=== PATIENT | male | born 1955 ===

== ENCOUNTER 2019-06-04 17:39 | Emergency (ER) | payer OTHER ==
[~2019-06-04] VITALS: Ht 188 cm; Wt 97.5 kg
[2019-06-04] MEDS ORDERED: TERB250 PO (19:31)
[2019-06-04] MEDS ORDERED: Amoxicillin875 MG PO (19:39)
[2019-06-04] MEDS ORDERED: IBUP600 PO (19:53)
== END 2019-06-04 20:01 | disposition home or self-care (01) ==
LOC: ER 17:39
DX: H66.92 Otitis media, unspecified, left ear (principal); R06.2 Wheezing; Z88.5 Allergy status to narcotic agent; Z79.899 Other long term (current) drug therapy
CPT/HCPCS: 99283

== ENCOUNTER 2019-06-07 21:42 | Inpatient (IN) | payer OTHER ==
[~2019-06-07] VITALS: Ht 188 cm; Wt 95.8 kg
[~2019-06-07 21:42] MED LIST: Amoxicillin875 MG PO; IBUP600 PO; TERB250 PO
[2019-06-07 22:28] LABS: Source, Urine Voided
[2019-06-07 22:32] LABS: Appearance, Urine Clear (Clear); Bilirubin, Urine Neg (Neg); Blood, Urine 1+ (Neg); Color, Urine Amber (P-Yellow); Glucose Qualitative, Urine 4+ (Neg); Ketones, Urine 2+ (Neg); Leukocyte Esterase, Urine Neg (Neg); Nitrite, Urine Neg (Neg); Protein, Urine 3+ (Neg); Urobilinogen, Urine 1+ (Normal)
[2019-06-07 22:38] LABS: Amorphous Light (0-Heavy); Bacteria Mod /hpf; Mucus Light (0-Heavy); Red Blood Cells, Urine 0-2 /hpf (0-2); Squamous Epithelial Cells Not Seen /hpf (Few)
[2019-06-08 00:10] LABS: Calcium, Ionized (POC) 1.11 mmol/L (1.10-1.46); Chloride (POC) 90 mmol/L (98-108); Creatinine (POC) 1.3 mg/dL (0.8-1.3); Glucose (ISTAT POC) 504 mg/dL (70-99); Hemoglobin (POC) 16.7 g/dL (13.5-17.5); Potassium (POC) 3.9 mmol/L (3.5-5.5); Sodium (POC) 123 mmol/L (135-148); Total CO2 (POC) 23 mmol/L (21-32)
[2019-06-08 00:58] LABS: BASOPHILS ABSOLUTE AUTO 0.05 K/mm3 (0.00-0.23); BASOPHILS PERCENT AUTO 1 % (0-2); Hematocrit 42.3 % (37.0-53.0); Hemoglobin 14.9 g/dL (13.5-17.5); LYMPHOCYTES ABSOLUTE AUTO 0.26 K/mm3 (0.84-5.20); LYMPHOCYTES PERCENT AUTO 3 % (21-46); MONOCYTES ABSOLUTE AUTO 0.85 K/mm3 (0.16-1.47); MONOCYTES PERCENT AUTO 9 % (4-13); Mean Corpuscular HGB 31.3 pg (26.0-34.0); Mean Corpuscular HGB Conc 35.2 g/dL (31.5-36.5); Mean Corpuscular Volume 89 fL (80-100); Platelet Count 150 K/mm3 (150-400); RDW Coefficient Variation 11.2 % (11.7-14.2); RDW Standard Deviation 36.4 fL (35.1-46.3); Red Blood Cell Count 4.76 M/mm3 (4.30-5.90); White Blood Cell Count 9.49 K/mm3 (4.00-11.30)
[2019-06-08 01:02] LABS: EOSINOPHILS PERCENT AUTO 0 % (0-6); IMMATURE GRAN ABSOLUTE AUTO 0.07 K/mm3 (0.00-0.10); IMMATURE GRAN PERCENT AUTO 1 % (0-1); Mean Platelet Volume 14.1 fL (9.1-12.4); NEUTROPHILS ABSOLUTE AUTO 8.26 K/mm3 (1.96-9.15); NEUTROPHILS PERCENT AUTO 87 % (41-73)
[2019-06-08 01:11] LABS: Albumin, Blood 2.5 g/dL (3.4-5.0); Albumin/Globulin Ratio 0.5 (0.8-1.8); Bilirubin, Total 1.1 mg/dL (0.1-1.0); Bun/Creatinine Ratio 28.1 (12.0-20.0); Calcium, Blood 8.9 mg/dL (8.5-10.1); Creatinine, Blood 1.28 mg/dL (0.60-1.20); Globulin, Blood 4.8 g/dL (2.2-4.0); Potassium, Blood 4.4 mmol/L (3.5-5.5); Total Protein, Blood 7.3 g/dL (6.4-8.2)
[2019-06-08 03:32] LABS: International Normalized Ratio 1.09; Prothrombin Time Results 11.5 Sec (9.7-11.5)
--- NOTE | 2019-06-08 04:00 | NUR ---
ADMIT NOTE: ADMIT 64 YEAR OLD MALE TO ICU 10 PCU STATUS TO [address] BANKS SERVICE PER GURNEY VIA ER. GAIT STEADY TO BED. MONITOR PLACED SHOWING SINUS RHYTHM HEART RATE 70'S-90'S. CO RIGHT FLANK/RIB PAIN ESPICALLY WHEN MOVING OR COUGHING LUNG SOUNDS CLEAR UPPER LOBES WITH VERY DECREASED SOUNDS IN THE BASES COARSE HARSH COUGH WITH SMALL AMT THICK YELLOW SPUTUM EXPECTORATED. REMINDED THAT A SPUTUM SAMPLE IS NEEDED. COLLECTION CONTAINER GIVEN .ABDOMEN SOFT WITH BOWEL SOUNDS FOUR QUADS. IV TO L AC PATENT FLUSHED. RELEASE OF MEDICAL INFORMATION AND BLOOD CONSENT SIGHNED. RESP PANAL OBTAINED AND SENT TO LAB. REPOSITIONS SELF IN BED CONTINUE TO MONITOR AND REPORT CHANGE IN PATIENT CONDITION AT
[2019-06-08 04:35] LABS: Hematocrit 38.9 % (37.0-53.0); Hemoglobin 13.3 g/dL (13.5-17.5); Mean Corpuscular HGB 31.1 pg (26.0-34.0); Mean Corpuscular HGB Conc 34.2 g/dL (31.5-36.5); Mean Corpuscular Volume 91 fL (80-100); Platelet Count 117 K/mm3 (150-400); RDW Coefficient Variation 11.3 % (11.7-14.2); RDW Standard Deviation 38.1 fL (35.1-46.3); Red Blood Cell Count 4.27 M/mm3 (4.30-5.90); White Blood Cell Count 8.05 K/mm3 (4.00-11.30)
[2019-06-08 04:39] LABS: Mean Platelet Volume 13.3 fL (9.1-12.4)
[2019-06-08 04:51] LABS: Albumin, Blood 2.3 g/dL (3.4-5.0); Albumin/Globulin Ratio 0.5 (0.8-1.8); Bilirubin, Total 0.8 mg/dL (0.1-1.0); Bun/Creatinine Ratio 26.9 (12.0-20.0); Calcium, Blood 8.6 mg/dL (8.5-10.1); Creatinine, Blood 1.34 mg/dL (0.60-1.20); Globulin, Blood 4.3 g/dL (2.2-4.0); Potassium, Blood 3.8 mmol/L (3.5-5.5); Total Protein, Blood 6.6 g/dL (6.4-8.2)
[2019-06-08 06:24] LABS: Adenovirus Not Detected (NOT DETECT); Bordetella pertussis Not Detected (NOT DETECT); Chlamydophila pneumoniae Not Detected (NOT DETECT); Coronavirus 229E Not Detected (NOT DETECT); Coronavirus HKU1 Not Detected (NOT DETECT); Coronavirus NL63 Not Detected (NOT DETECT); Coronavirus OC43 Not Detected (NOT DETECT); Human Metapneumovirus Not Detected (NOT DETECT); Human Rhinovirus/Enterovirus Detected (NOT DETECT); Influenza A Not Detected (NOT DETECT); Influenza A/2009-H1 Not Detected (NOT DETECT); Influenza A/H1 Not Detected (NOT DETECT); Influenza A/H3 Not Detected (NOT DETECT); Influenza B Not Detected (NOT DETECT); Mycoplasma pneumoniae Not Detected (NOT DETECT); Parainfluenza Virus 1 Not Detected (NOT DETECT); Parainfluenza Virus 2 Not Detected (NOT DETECT); Parainfluenza Virus 3 Not Detected (NOT DETECT); Parainfluenza Virus 4 Not Detected (NOT DETECT); Respiratory Syncytial Virus Not Detected (NOT DETECT)
--- NOTE | 2019-06-08 06:42 | NUR ---
SHIFT SUMMARY RESTS QUIETLY WHEN UNDISTURBED. NO ACUTE CHANGE IN CONDITION SINCE ADMIT
--- NOTE | 2019-06-08 07:30 | NUR ---
ASSUMED CARE: PT RESTING IN BED. MOANING BECAUSE HIS RIBS HURT. RT AT BEDSIDE. 2L O2 VIA NC. ASKED IF HE CAN HAVE WATER. CALL TO DR THAKKAR FOR DIET. NO ACUTE NEEDS AT THIS TIME.
--- NOTE | 2019-06-08 10:32 | NUR ---
REPORT GIVEN TO TRACE DAS. PIPPA AWARE OF PT'S INCREASED BLOOD SUGARS AND THAT BREAKFAST WAS HELD. FAMILY AT BEDSIDE AND AWARE OF TRANSFER TO [facility]. PT TRANSFERRED VIA WHEEL CHAIR BY TRACE
--- NOTE | 2019-06-08 11:35 | NUR ---
HE ARRIVED TO ROOM 359 FROM ICU BY W/C AT 1020. HE SAT ON THE SIDE OF THE BED FOR AWHILE, THEN LAYED ON HIS L SIDE IN PAIN. I SPOKE WITH ABOUT PAIN COVERAGE. HE ORDERED TORADOL, WHICH IS WHAT PATIENT WAS HOPING FOR. HE HAS NOW BEEN MEDICATED. CBG 304. SS INSULIN GIVEN. HIS GIRLFRIEND STEPPED OUT. HIS MOTHER AND DAUGHTER ARE VISITING NOW.
--- NOTE | 2019-06-08 12:59 | NUR ---
HE IS HAVING AN EKG DONE AT THIS TIME. HE WAS UP IN THE CHAIR FOR LUNCH AND SO THAT WE COULD EXCHANGE HIS BED FOR ANOTHER ONE. THE FIRST BED WENT TO MAINTAINENCE. HE IS EATING SLOWLY. HE SAID HE HAS HARDLY EATEN ANYTHING FOR 4 DAYS.
--- NOTE | 2019-06-08 15:08 | NUR ---
HE SAYS THE TORADOL DIDN'T HELP VERY MUCH. A HEATING PAD HAS BEEN STARTED. THE PAIN IS IN HIS BACK AND BEHIND HIS RIBS BOTH SIDES. HIS LEFT EAR DRAINED SOME MUCOUSY BROWN RED DRAINAGE EARLIER TODAY WHEN HE LAYED ON HIS L SIDE IN BED. HE ATE SOUP AT LUNCH BUT NOTHING ELSE. HIS GIRLFRIEND LEFT FOR A FEW HRS.
--- NOTE | 2019-06-08 18:47 | NUR ---
THE IV TORADOL WAS MORE EFFECTIVE THAN THE PO DOSE. HE ALSO IS MORE COMFORTABLE IN THE CHAIR THAN HE WAS IN THE BED. HE DID NOT LIKE THE KPAD MUCH EITHER. HIS GIRLFRIEND IS BACK. HE HAS A NEW SPUTUM CUP BECAUSE THE LAB CALLED AND SAID THEY REJECTED THE EARLIER SPECIMAN. O2 HUMIDIFIED BECAUSE HE C/O BLOODY NOSE. HIS O2 HAS BEEN OFF MOST OF THE TIME. HE PUTS IT UP ON HIS FOREHEAD OR UNDER HIS CHIN.
[2019-06-09 04:35] LABS: Hemoglobin 12.9 g/dL (13.5-17.5); Mean Corpuscular HGB 31.6 pg (26.0-34.0); Mean Corpuscular HGB Conc 34.9 g/dL (31.5-36.5); Mean Corpuscular Volume 91 fL (80-100); Platelet Count 131 K/mm3 (150-400); RDW Coefficient Variation 11.6 % (11.7-14.2); RDW Standard Deviation 38.8 fL (35.1-46.3); Red Blood Cell Count 4.08 M/mm3 (4.30-5.90); White Blood Cell Count 7.47 K/mm3 (4.00-11.30)
[2019-06-09 04:43] LABS: Mean Platelet Volume 13.1 fL (9.1-12.4)
[2019-06-09 04:51] LABS: Anion Gap 9 mmol/L (6-16); Blood Urea Nitrogen 43 mg/dL (8-24); Bun/Creatinine Ratio 36.1 (12.0-20.0); CO2, Blood 25 mmol/L (21-32); Calcium, Blood 8.6 mg/dL (8.5-10.1); Chloride, Blood 96 mmol/L (98-108); Creatinine, Blood 1.19 mg/dL (0.60-1.20); Glomerular Filtration Rate >60 (60-); Glucose, Blood 323 mg/dL (70-99); Potassium, Blood 3.5 mmol/L (3.5-5.5); Sodium, Blood 130 mmol/L (136-145)
[2019-06-09 05:08] LABS: BAND PERCENT MAN 25 % (0-8); BASOPHILS PERCENT MAN 0 % (0-2); EOSINOPHILS PERCENT MAN 0 % (0-6); LYMPHOCYTES ABSOLUTE MAN 0.29 K/mm3 (0.84-5.20); LYMPHOCYTES PERCENT MAN 4 % (21-46); MONOCYTES ABSOLUTE MAN 0.44 K/mm3 (0.16-1.47); MONOCYTES PERCENT MAN 6 % (4-13); MYELOCYTE ABSOLUTE MAN 0.07 K/mm3 (0.00-0.00); MYELOCYTE PERCENT MAN 1 % (0-0); NEUTROPHILS ABSOLUTE MAN 6.64 K/mm3 (1.96-9.15); SEG NEUTROPHILS PERCENT MAN 64 % (41-73); TOTAL CELLS COUNTED 100
--- NOTE | 2019-06-09 06:34 | NUR ---
SHIFT SUMMARY PT C/O PAIN IN R SIDE SAID IT WAS STARTING TO COME TO HIS FRONT, SHARP PAIN 10 OUT OF 10 MOANING VERY LOUDLY SO LOUD IT WAS HEARD OUT INTO HALLWAYS. MEDICATED PER LUCILA Marmolejo TYLENOL, HE REFUSED ANY OPIATES SAID IT MADE HIM SHAKE TOO MUCH AND GET TOO COLD AND WOULD "KILL HIM". NOTIFIED LAUREN HERMOSILLO OF CONTINUED PAIN SHE ORDERED IV TORADOL Q6 AND FLEXERIL 5MG. HE WAS ABLE TO GET TO SLEEP AFTER THE FLEXERIL, SLEPT IN CHAIR AND LATER WENT INTO BED. HARSH PRODUCTIVE COUGH WITH THICK MUCUS HE COUGHS UP. L EAR STILL DRAINING SEROUS AND SOME BLOOD. SO AT BEDSIDE T/O NIGHT. O2 SAT 94% ON RA. CALL LIGHT IN REACH.
--- NOTE | 2019-06-09 11:52 | NUR ---
HIS GIRLFRIEND HAS GONE HOME FOR AWHILE TO SHOWER, ETC. HE HAS SHOWERED AND STILL FEELS TERRIBLE BUT NOT TERRIBLE YESTERDAY. THE FLEXERIL IS HELPFUL TO HIM, IS THE IV TORADOL. HE HAS HAD 1 DOSE OF EACH SO FAR TODAY. HIS EAR DROPS AND IV VANCO HAVE BEEN INITIATED. O2 OFF. HE STILL COUGHS OUT YELLOW BROWN SPUTUM AND HAS A LITTLE OF BLOODY MUCUS FROM HIS NOSE. HE LIKES HIS DOOR CLOSED AND IS TRYING TO REST. HE ONLY GETS HIS I.S. UP TO 500 AND NEEDS TO BE TOLD TO SLOW DOWN. CB THIS AM LESS THAN 300.
--- NOTE | 2019-06-09 13:52 | NUR ---
CABBAGE SALTER SAW HIM AND GAVE HIM PAPERWORK TO ESTABLISH WITH A PCP AT [facility]. HE ATE SOME LUNCH. HE SAYS HE'S JUST SO WEAK BUT HAS LESS PAIN THAN YESTERDAY.
--- NOTE | 2019-06-09 16:35 | NUR ---
HE HAS A HANDFUL OF FAMILY WITH HIM NOW. 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 EDUCATION GIVEN. CBG WAS 318 AT LUNCHTIME. HE SAYS HE FEELS WEAK, BUT HE DID SHOWER TODAY AND EAT SOME FOOD. HE IS ON RA. SEE PREVIOUS DAYSHIFT NOTES.
--- NOTE | 2019-06-10 04:12 | NUR ---
SHIFT SUMMARY AOX4. LS COARSE, SOB W/ACTIVITY AND COUGHING SPELLS. COUGH IS PRODUCTIVE. INCENTIVE SPIROMETER ENCOURAGED. NO C/O NAUSEA. PAIN 5/10 IN R FLANK/BACK, INCREASED WITH MOVEMENT/COUGHING. FLEXERIL GIVEN @ 2004. TORADOL GIVEN @ 44. PLANNING ON GIVING MORE PAIN MEDICATION BEFORE END OF SHIFT. NO SKIN PROBLEMS. PT UP AD SAMANTA. DROPLET PRECAUTION FOR MRSA IN SPUTUM. 20G IN L AC SL. BLOOD SUGARS HIGH (288, 318, 397), PT WASN'T TAKING DIABETIC MEDS D/T NAUSEA AND VOMITING. L EAR DRAINS OCCASIONALLY, EARDRUM PERFORATED, PT TAKING DROPS DAILY. VSS ON RA. UNSURE OF DC PLAN AT THIS TIME.
[2019-06-10 05:26] LABS: Hematocrit 38.5 % (37.0-53.0); Mean Corpuscular HGB 30.6 pg (26.0-34.0); Mean Corpuscular HGB Conc 33.8 g/dL (31.5-36.5); Mean Corpuscular Volume 91 fL (80-100); Mean Platelet Volume 13.3 fL (9.1-12.4); Platelet Count 134 K/mm3 (150-400); RDW Coefficient Variation 11.7 % (11.7-14.2); RDW Standard Deviation 38.9 fL (35.1-46.3); Red Blood Cell Count 4.25 M/mm3 (4.30-5.90); White Blood Cell Count 9.34 K/mm3 (4.00-11.30)
[2019-06-10 05:45] LABS: BAND PERCENT MAN 33 % (0-8); BASOPHILS PERCENT MAN 0 % (0-2); EOSINOPHILS ABSOLUTE MAN 0.09 K/mm3 (0.00-0.68); EOSINOPHILS PERCENT MAN 1 % (0-6); LYMPHOCYTES ABSOLUTE MAN 0.46 K/mm3 (0.84-5.20); LYMPHOCYTES PERCENT MAN 5 % (21-46); MONOCYTES ABSOLUTE MAN 0.37 K/mm3 (0.16-1.47); MONOCYTES PERCENT MAN 4 % (4-13); MYELOCYTE ABSOLUTE MAN 0.18 K/mm3 (0.00-0.00); MYELOCYTE PERCENT MAN 2 % (0-0); NEUTROPHILS ABSOLUTE MAN 8.21 K/mm3 (1.96-9.15); SEG NEUTROPHILS PERCENT MAN 55 % (41-73); TOTAL CELLS COUNTED 100
[2019-06-10 05:48] LABS: Anion Gap 8 mmol/L (6-16); Blood Urea Nitrogen 30 mg/dL (8-24); Bun/Creatinine Ratio 40.4 (12.0-20.0); CO2, Blood 24 mmol/L (21-32); Calcium, Blood 8.5 mg/dL (8.5-10.1); Chloride, Blood 101 mmol/L (98-108); Creatinine, Blood 0.74 mg/dL (0.60-1.20); Glomerular Filtration Rate >60 (60-); Glucose, Blood 295 mg/dL (70-99); Potassium, Blood 3.1 mmol/L (3.5-5.5); Sodium, Blood 133 mmol/L (136-145)
--- NOTE | 2019-06-10 08:10 | NUR ---
PT A/O, STATES WORKS AT [employer], OVERLY ANXOIUS AND VERY DRAMATIC. PRESENTLY COUGHING MULTIPLE HARD WHINING LOUD COUGHS ATTEMPTING TO BRING UP SPUTUM. DOES BRING SOME LIGHT GARCIA SPUTUM AFTER MANY ATTEMPTS. H/R IS IRREG, APPEARS TO SKIP A BEAT OCCATIONALLY UPON AUSCULTATION. NO TELE, NO PACER. DENIES HEART CONDITIONS. WILL NOTIFY DR THAKKAR WHEN SEE. LUNGS PRESENT CLEAR T/O. ON R/A. DENIES SOB WITH WALKING OR TALKING. SMALL AMTS OF LIGHT GARCIA SPUTUM AFTER MUCH WORK TO BRING UP, NOTED ABOVE. STATES PAIN IS 8/10 ON RT RIBS, DENIES PAIN WITH BREATHING. STATES PAIN IS THROBBING IN RIBS. MED PER EMAR. RESP EASY, UNLABORED. ON R.A. BT X4 LAST BM FIRST STATES HAS NEVER HAD ONE. UPON FURTHER DISCUSSION AGREES AT LEAST SINCE SAT PERHAPS LATER. DENIES ABD PAIN. SOFT, NONTENDER. MED PER EMAR. VOIDS PER BATHROOM, INDEPENDANT IN ROOM. BED IN LOW POSITION, CALL LITE IN REACH, CALLS APPROP.
[2019-06-10 10:33] LABS: Vancomycin, Trough 8.6 ug/mL (5.0-10.0)
--- NOTE | 2019-06-10 12:50 | NUR ---
NOTIFIED DR THAKKAR OF [facility] H/[facility]. NO NEW ORDERS
--- NOTE | 2019-06-10 17:29 | NUR ---
PT PLEASANT COOP A/O. COUNTANANCE IMPROVED SOME TODAY. JUST ASKED PAIN LEVEL WHICH HE STATES IS QUITE LOW. NO MEDS NEEDED AT THIS TIME. LADYFRIEND IN ROOM WITH HIM AT THIS TIME. NO OTHER CONCERNS AT THIS TIME. BED IN LOW POSITION, CALL LITE IN REACH, CALLS APPROP
--- NOTE | 2019-06-11 05:21 | NUR ---
SHIFT SUMMARY PT A/O INDEPENDENT. C/O PAIN IN L EAR AND R SIDE MEDICATED PER EMAR C IV TORADOL X1. HE REFUSED TYLENOL OR MUSCLE RELAXER. HE WAS ABLE TO SLEEP T/O NOC. STILL HARSH OCCASIONAL PRODUCTIVE COUGH WHICH HE SAYS IS BEGINNING TO BRING UP LESS AND LESS MUCUS. RA AT 93-94%.
[2019-06-11 05:27] LABS: Hematocrit 38.5 % (37.0-53.0); Mean Corpuscular HGB 30.8 pg (26.0-34.0); Mean Corpuscular HGB Conc 33.8 g/dL (31.5-36.5); Mean Corpuscular Volume 91 fL (80-100); Mean Platelet Volume 12.3 fL (9.1-12.4); Platelet Count 169 K/mm3 (150-400); RDW Coefficient Variation 11.9 % (11.7-14.2); RDW Standard Deviation 39.8 fL (35.1-46.3); Red Blood Cell Count 4.22 M/mm3 (4.30-5.90); White Blood Cell Count 9.68 K/mm3 (4.00-11.30)
[2019-06-11 05:47] LABS: Anion Gap 9 mmol/L (6-16); Blood Urea Nitrogen 22 mg/dL (8-24); Bun/Creatinine Ratio 25.9 (12.0-20.0); CO2, Blood 24 mmol/L (21-32); Calcium, Blood 8.6 mg/dL (8.5-10.1); Chloride, Blood 102 mmol/L (98-108); Creatinine, Blood 0.85 mg/dL (0.60-1.20); Glomerular Filtration Rate >60 (60-); Glucose, Blood 249 mg/dL (70-99); Potassium, Blood 3.3 mmol/L (3.5-5.5); Sodium, Blood 135 mmol/L (136-145)
[2019-06-11 05:51] LABS: BAND PERCENT MAN 4 % (0-8); BASOPHILS PERCENT MAN 0 % (0-2); EOSINOPHILS PERCENT MAN 0 % (0-6); LYMPHOCYTES ABSOLUTE MAN 0.77 K/mm3 (0.84-5.20); LYMPHOCYTES PERCENT MAN 8 % (21-46); MONOCYTES ABSOLUTE MAN 0.77 K/mm3 (0.16-1.47); MONOCYTES PERCENT MAN 8 % (4-13); NEUTROPHILS ABSOLUTE MAN 8.13 K/mm3 (1.96-9.15); SEG NEUTROPHILS PERCENT MAN 80 % (41-73); TOTAL CELLS COUNTED 100
[2019-06-11 11:53] LABS: Vancomycin, Trough 10.4 ug/mL (5.0-10.0)
--- NOTE | 2019-06-11 17:51 | NUR ---
SHIFT SUMMARY PATIENT IS PLEASANT, ALERT AND ORIENTED INDEPENDENT IN THE ROOM. HE GOT A POWERGLIDE TODAY, IT DOES DRAW BUT IS POSITIONAL. NO ACUTE CONCERNS AT THS TIME. CONTINUE IV ANTIBIOTIC THERAPY UNTIL FURTHER NOTICE.
--- NOTE | 2019-06-12 05:48 | NUR ---
SHIFT SUMMARY NO ACUTE EVENTS OVERNIGHT. RESP E/U ON RA. PT REPORTS PAIN IS TOLERABLE AT THIS TIME AND DENIES NEED FOR PAIN MEDS. PT WITH OCCASIONAL HACKING COUGH, REPORTS YELLOW/GREEN SPUTUM. USING INCENTIVE SPIROMETER FREQUENTLY, S/O AT BEDSIDE ENCOURAGING USE. IV ABX PER EMAR ORDERS. VSS. WILL CONT TO MONITOR AND PROVIDE CARE UNTIL PRESUMED BY ONCOMING RN.
[2019-06-12 12:48] LABS: Vancomycin, Trough 13.8 ug/mL (5.0-10.0)
--- NOTE | 2019-06-12 18:31 | NUR ---
SHIFT SUMMARY PATIENT IS PLEASANT, ALERT AND ORIENTED. I CHANGED THE CAP ON HIS POWERGLIDE TODAY BECAUSE WE DYLON BLOOD THROUGH IT. PATIENT HAS BEEN CONNECTED FOR IV ABX. OTHER THAN THAT HE IS PLEASANT. HE HAS EATEN AND DONE A LOT OF RESTING TODAY.
--- NOTE | 2019-06-13 04:46 | NUR ---
SHIFT SUMMARY AOX4. DENIES SOB, NAUSEA, AND PAIN. INDEPENDENT. NO SKIN PROBLEMS. DROPLET PRECAUTIONS FOR MRSA IN SPUTUM. VSS ON RA. POWERGLIDE IN [facility], WASN'T DRAWING BLOOD THIS AM. BLOOD GLUCOSE BEFORE MEALS. PT WILL WANT SHOWER LATER THIS AM. PLAN IS TO SWITCH TO ORAL ANTIBIOTICS THEN DC TODAY.
[2019-06-13 13:16] LABS: Creatinine, Blood 0.69 mg/dL (0.60-1.20); Vancomycin, Trough 12.1 ug/mL (5.0-10.0)
--- NOTE | 2019-06-13 19:12 | NUR ---
SHIFT SUMMARY MIGUEL STATES HIS BREATHING AND HIS EAR INFECTION FEEL A LOT BETTER TODAY. POOR APPETITE. FAMILY VISITED. INDEP IN ROOM. CBGS REQUIRING INSULIN. SLIGHT L EAR DRAINAGE. R POWERGLIDE NOT DRAWING. TOOK MEDS PRESCRIBED, WCTM
--- NOTE | 2019-06-14 03:17 | NUR ---
SHIFT SUMMARY AOX4. LS CLEAR, SOB IMPROVING. NO C/O NAUSEA, VERY LITTLE APPETITE. NO C/O PAIN. INDEPENDENT. NO SKIN PROBLEMS. POWERGLIDE IN [place] - SL. L EAR STILL DRAINS OCCASIONALLY. PLAN IS TO DC TODAY W/ORAL DM MEDS AND ORAL ANTIBIOTICS. VSS ON RA.
[2019-06-14] MEDS ORDERED: CYCL10 PO (12:00)
[2019-06-14] MEDS ORDERED: GUAI600T33 PO (12:01)
[2019-06-14] MEDS ORDERED: Ocuflox5 ML LEFTEAR (12:02)
[2019-06-14] MEDS ORDERED: DOXY100 PO (12:03)
[2019-06-14] MEDS ORDERED: GLIP2.5ER PO (12:04)
--- NOTE | 2019-06-14 12:38 | NUR ---
PT DISCHARGED TO HOME. PT ALERT AND ORIENTED THROUGHOUT THIS SHIFT. PT TRANSPORTED HOME BY S/O. PT INDEPENDENT IN ROOM PRIOR TO DISCHARGE. PT AND S/O PROVIDED DISCHARGE EDUCATION, STATING NO QUESTIONS AT THIS TIME. PT BELONGINGS WITH PT UPON DISCHARGE. PT TO WHEELCHAIR INDEPENDENTLY FOR DISCHARGE. POWERGLIDE REMOVED PRIOR TO DISCHARGE.
== END 2019-06-14 12:34 | disposition home or self-care (01) | DRG 177 ==
LOC: ER 21:42 → ICUW 06-08 03:43 → MEDS 06-08 10:20 → ENPENDDIS 06-14 11:13 → MEDS 06-14 12:34
PROVIDERS: Emergency Medicine; Internal Medicine; Pharmacist; ADMIT Internal Medicine
DX: J15.212 Pneumonia due to Methicillin resistant Staphylococcus aureus (principal); J96.01 Acute respiratory failure with hypoxia; E87.1 Hypo-osmolality and hyponatremia; K59.00 Constipation, unspecified; E86.0 Dehydration; H66.90 Otitis media, unspecified, unspecified ear; E87.6 Hypokalemia; Z79.84 Long term (current) use of oral hypoglycemic drugs; E11.65 Type 2 diabetes mellitus with hyperglycemia
CPT/HCPCS: 0099U; 36415; 71046; 71260; 74176; 80047; 80048; 80053; 80202; 81001; 82565; 82947; 83605; 83690; 84145; 85014; 85025; 85027; 85610; 87070; 87077; 87086; 87147; 87186; 87205; 93005; 93010; 94640; 94760; 96365; 96366; 96372; 99285-25; J0696; J1650; J1885; J1956; J2543; J3370; J7030; J7050; Q9967

== ENCOUNTER 2019-12-21 08:04 | Day surgery (SDC) | payer OTHER ==
[~2019-12-21] VITALS: Ht 185.4 cm; Wt 104.0 kg
[~2019-12-21 08:04] MED LIST changes: +CYCL10 PO; +DOXY100 PO; +GLIP2.5ER PO; +GUAI600T33 PO; +Ocuflox5 ML LEFTEAR
[2019-12-21] MEDS ORDERED: PIOG30 (08:51)
[2019-12-21] MEDS ORDERED: ATOR20 (08:52)
== END 2019-12-21 09:58 | disposition home or self-care (01) ==
LOC: ORSCSDS 08:04
PROVIDERS: Internal Medicine Gastroenterology
PROC: 0DBM8ZX Excision of Descending Colon, Via Natural or Artificial Opening Endoscopic, Diagnostic (ICD-10-PCS; principal; 2019-12-21 09:00)
PROC: 0DBH8ZX Excision of Cecum, Via Natural or Artificial Opening Endoscopic, Diagnostic (ICD-10-PCS; principal; 2019-12-21 09:00)
PROC: 0DBP8ZX Excision of Rectum, Via Natural or Artificial Opening Endoscopic, Diagnostic (ICD-10-PCS; principal; 2019-12-21 09:00)
PROC: 0DBK8ZX Excision of Ascending Colon, Via Natural or Artificial Opening Endoscopic, Diagnostic (ICD-10-PCS; principal; 2019-12-21 09:00)
PROC: 0DBL8ZX Excision of Transverse Colon, Via Natural or Artificial Opening Endoscopic, Diagnostic (ICD-10-PCS; principal; 2019-12-21 09:00)
DX: K62.5 Hemorrhage of anus and rectum (principal); Z86.010 Personal history of colon polyps; K59.00 Constipation, unspecified; Z80.0 Family history of malignant neoplasm of digestive organs; D12.0 Benign neoplasm of cecum; D12.2 Benign neoplasm of ascending colon; D12.3 Benign neoplasm of transverse colon; K63.5 Polyp of colon; K62.1 Rectal polyp; K63.89 Other specified diseases of intestine; E11.9 Type 2 diabetes mellitus without complications; I10 Essential (primary) hypertension; Z79.899 Other long term (current) drug therapy; Z79.82 Long term (current) use of aspirin
CPT/HCPCS: 82947; 88305; J0330; J0461; J2405; J2704; J7120

== ENCOUNTER → 2023-04-21 | Outpatient (CLI) | payer MEDICARE ==
[~2023-04-21] MED LIST changes: +ATOR20; +PIOG30
[2023-04-21 14:33] LABS: BASOPHILS ABSOLUTE AUTO 0.06 K/mm3 (0.00-0.23); BASOPHILS PERCENT AUTO 1 % (0-2); EOSINOPHILS ABSOLUTE AUTO 0.27 K/mm3 (0.00-0.68); EOSINOPHILS PERCENT AUTO 5 % (0-6); Hematocrit 45.9 % (37.0-53.0); Hemoglobin 15.5 g/dL (13.5-17.5); IMMATURE GRAN ABSOLUTE AUTO 0.03 K/mm3 (0.00-0.10); IMMATURE GRAN PERCENT AUTO 1 % (0-1); LYMPHOCYTES ABSOLUTE AUTO 1.31 K/mm3 (0.84-5.20); LYMPHOCYTES PERCENT AUTO 23 % (21-46); MONOCYTES ABSOLUTE AUTO 0.41 K/mm3 (0.16-1.47); MONOCYTES PERCENT AUTO 7 % (4-13); Mean Corpuscular HGB 30.5 pg (26.0-34.0); Mean Corpuscular HGB Conc 33.8 g/dL (31.5-36.5); Mean Corpuscular Volume 90 fL (80-100); NEUTROPHILS ABSOLUTE AUTO 3.62 K/mm3 (1.96-9.15); NEUTROPHILS PERCENT AUTO 64 % (41-73); Platelet Count 140 K/mm3 (150-400); RDW Coefficient Variation 12.3 % (11.7-14.2); RDW Standard Deviation 40.5 fL (35.1-46.3); Red Blood Cell Count 5.08 M/mm3 (4.30-5.90)
[2023-04-21 14:39] LABS: Mean Platelet Volume 13.3 fL (9.1-12.4)
[2023-04-21 17:50] LABS: Alanine Aminotransfer (ALT/SGP 41 U/L (12-78); Albumin, Blood 3.8 g/dL (3.4-5.0); Albumin/Globulin Ratio 1.1 (0.8-1.8); Alk Phos 87 U/L (50-136); Anion Gap 5 mmol/L (6-16); Aspartate Aminotrans (AST/SGOT 19 U/L (12-37); Bilirubin, Total 0.6 mg/dL (0.1-1.0); Blood Urea Nitrogen 14 mg/dL (8-24); CHOL/HDL RATIO 5.7; CO2, Blood 25 mmol/L (21-32); Calcium, Blood 8.9 mg/dL (8.5-10.1); Chloride, Blood 107 mmol/L (98-108); Cholesterol 195 mg/dL (50-200); Globulin, Blood 3.5 g/dL (2.2-4.0); Glucose, Blood 181 mg/dL (70-99); HDL Cholesterol 34 mg/dL (>39); LDL/HDL RATIO 3.6; Low Density Lipoprotein Chol 122 mg/dL (0-110); Potassium, Blood 4.1 mmol/L (3.5-5.5); Sodium, Blood 137 mmol/L (136-145); Total Protein, Blood 7.3 g/dL (6.4-8.2); Triglycerides 196 mg/dL (30-160); Very Low Density Lipoprot Chol 39 mg/dL (6-32)
[2023-04-21 17:56] LABS: Bun/Creatinine Ratio 14.9 (12.0-20.0); Creatinine, Blood 0.94 mg/dL (0.60-1.20); Glomerular Filtration Rate 88 (60-); Prostate Specific Antigen 0.587 ng/mL (0.000-4.000)
[2023-04-25 09:10] LABS: FREE TESTOSTERONE(DIRECT) 8.6 pg/mL (6.6-18.1); TESTOSTERONE, SERUM 201 ng/dL (264-916)
== END ==
LOC: LAB SHORT 10:30 → LAB 10:30
PROVIDERS: Nurse Practitioner Family
DX: Z12.5 Encounter for screening for malignant neoplasm of prostate (principal); Z13.31 Encounter for screening for depression; E11.65 Type 2 diabetes mellitus with hyperglycemia; E55.9 Vitamin D deficiency, unspecified; E78.5 Hyperlipidemia, unspecified; R53.83 Other fatigue
CPT/HCPCS: 80053; 80061; 82306; 84402; 84403; 84443; 85025; G0103

== ENCOUNTER → 2024-04-04 | Outpatient (CLI) | payer MEDICARE ==
[~2024-04-04] MED LIST changes: +GLIP5
[2024-04-04 11:56] LABS: BASOPHILS ABSOLUTE AUTO 0.06 K/mm3 (0.00-0.23); BASOPHILS PERCENT AUTO 1 % (0-2); EOSINOPHILS PERCENT AUTO 4 % (0-6); Hematocrit 44.3 % (37.0-53.0); Hemoglobin 15.1 g/dL (13.5-17.5); IMMATURE GRAN ABSOLUTE AUTO 0.02 K/mm3 (0.00-0.10); IMMATURE GRAN PERCENT AUTO 0 % (0-1); LYMPHOCYTES ABSOLUTE AUTO 1.15 K/mm3 (0.84-5.20); LYMPHOCYTES PERCENT AUTO 23 % (21-46); MONOCYTES ABSOLUTE AUTO 0.38 K/mm3 (0.16-1.47); MONOCYTES PERCENT AUTO 8 % (4-13); Mean Corpuscular HGB 31.3 pg (26.0-34.0); Mean Corpuscular HGB Conc 34.1 g/dL (31.5-36.5); Mean Corpuscular Volume 92 fL (80-100); NEUTROPHILS ABSOLUTE AUTO 3.29 K/mm3 (1.96-9.15); NEUTROPHILS PERCENT AUTO 65 % (41-73); Platelet Count 122 K/mm3 (150-400); RDW Coefficient Variation 11.9 % (11.7-14.2); RDW Standard Deviation 40.1 fL (35.1-46.3); Red Blood Cell Count 4.82 M/mm3 (4.30-5.90)
== END ==
LOC: LAB 10:36 → LAB SHORT 10:36
PROVIDERS: Internal Medicine Hematology & Oncology
DX: D69.6 Thrombocytopenia, unspecified (principal)
CPT/HCPCS: 85025

== ENCOUNTER → 2024-10-04 | Outpatient (CLI) | payer SELFPAY ==
[2024-10-04 13:16] LABS: BASOPHILS ABSOLUTE AUTO 0.06 K/mm3 (0.00-0.23); BASOPHILS PERCENT AUTO 1 % (0-2); EOSINOPHILS ABSOLUTE AUTO 0.22 K/mm3 (0.00-0.68); EOSINOPHILS PERCENT AUTO 4 % (0-6); Hematocrit 42.8 % (37.0-53.0); Hemoglobin 14.9 g/dL (13.5-17.5); IMMATURE GRAN ABSOLUTE AUTO 0.04 K/mm3 (0.00-0.10); IMMATURE GRAN PERCENT AUTO 1 % (0-1); LYMPHOCYTES ABSOLUTE AUTO 0.96 K/mm3 (0.84-5.20); LYMPHOCYTES PERCENT AUTO 18 % (21-46); MONOCYTES PERCENT AUTO 8 % (4-13); Mean Corpuscular HGB 30.8 pg (26.0-34.0); Mean Corpuscular HGB Conc 34.8 g/dL (31.5-36.5); Mean Corpuscular Volume 89 fL (80-100); NEUTROPHILS ABSOLUTE AUTO 3.66 K/mm3 (1.96-9.15); NEUTROPHILS PERCENT AUTO 69 % (41-73); Platelet Count 146 K/mm3 (150-400); RDW Coefficient Variation 11.6 % (11.7-14.2); RDW Standard Deviation 36.6 fL (35.1-46.3); Red Blood Cell Count 4.83 M/mm3 (4.30-5.90); White Blood Cell Count 5.34 K/mm3 (4.00-11.30)
== END ==
LOC: LAB 12:32 → LAB SHORT 12:32
PROVIDERS: Internal Medicine Hematology & Oncology
DX: D69.6 Thrombocytopenia, unspecified (principal)
CPT/HCPCS: 85025

== ENCOUNTER 2025-01-30 11:50 | Emergency (ER) | payer OTHER ==
[~2025-01-30] VITALS: Ht 185.4 cm; Wt 90.7 kg
[2025-01-30 12:04] VITALS: BP 148/80
[2025-01-30] MEDS ORDERED: CIPR500 PO (13:01)
== END 2025-01-30 13:01 | disposition home or self-care (01) ==
LOC: ER 11:50
DX: L03.115 Cellulitis of right lower limb (principal); S91.331A Puncture wound without foreign body, right foot, initial encounter; E11.9 Type 2 diabetes mellitus without complications; W45.0XXA Nail entering through skin, initial encounter; Z88.5 Allergy status to narcotic agent; Z79.84 Long term (current) use of oral hypoglycemic drugs
CPT/HCPCS: 73620; 99283-25

== ENCOUNTER → 2025-02-01 | Outpatient (CLI) | payer OTHER ==
[~2025-02-01] MED LIST changes: +CIPR500 PO
[2025-02-01 15:15] LABS: BASOPHILS ABSOLUTE AUTO 0.04 K/mm3 (0.00-0.23); BASOPHILS PERCENT AUTO 0 % (0-2); EOSINOPHILS ABSOLUTE AUTO 0.05 K/mm3 (0.00-0.68); EOSINOPHILS PERCENT AUTO 1 % (0-6); Hematocrit 42.6 % (37.0-53.0); Hemoglobin 14.8 g/dL (13.5-17.5); IMMATURE GRAN ABSOLUTE AUTO 0.07 K/mm3 (0.00-0.10); IMMATURE GRAN PERCENT AUTO 1 % (0-1); LYMPHOCYTES ABSOLUTE AUTO 0.79 K/mm3 (0.84-5.20); LYMPHOCYTES PERCENT AUTO 8 % (21-46); MONOCYTES ABSOLUTE AUTO 0.60 K/mm3 (0.16-1.47); MONOCYTES PERCENT AUTO 6 % (4-13); Mean Corpuscular HGB Conc 34.7 g/dL (31.5-36.5); Mean Corpuscular Volume 88 fL (80-100); NEUTROPHILS ABSOLUTE AUTO 8.55 K/mm3 (1.96-9.15); NEUTROPHILS PERCENT AUTO 85 % (41-73); NRBC ABSOLUTE 0.00 K/mm3 (0.00-0.02); NRBC Auto 0.0 /100 WBC (0.0-0.2); Platelet Count 154 K/mm3 (150-400); RDW Coefficient Variation 11.9 % (11.7-14.2); RDW Standard Deviation 38.0 fL (35.1-46.3)
[2025-02-01 15:24] LABS: Alanine Aminotransfer (ALT/SGP 20.0 U/L (12-78); Albumin, Blood 3.3 g/dL (3.4-5.0); Albumin/Globulin Ratio 0.9 (0.8-1.8); Anion Gap 10.0 mmol/L (3-11); Aspartate Aminotrans (AST/SGOT 10.0 U/L (12-37); Bilirubin, Total 0.8 mg/dL (0.1-1.0); Blood Urea Nitrogen 16.0 mg/dL (8-24); CO2, Blood 29.0 mmol/L (21-32); Calcium, Blood 8.9 mg/dL (8.5-10.1); Chloride, Blood 101.0 mmol/L (98-108); Creatinine, Blood 1.18 mg/dL (0.60-1.20); Globulin, Blood 3.8 g/dL (2.2-4.0); Glucose, Blood 364.0 mg/dL (70-99); Potassium, Blood 4.2 mmol/L (3.5-5.5); Sodium, Blood 136.0 mmol/L (136-145); Total Protein, Blood 7.1 g/dL (6.4-8.2)
== END ==
LOC: LAB 15:10 → LAB SHORT 15:10
PROVIDERS: Chiropractor
DX: S91.331A Puncture wound without foreign body, right foot, initial encounter (principal); R73.9 Hyperglycemia, unspecified
CPT/HCPCS: 80053; 83036; 85025

== ENCOUNTER → 2025-02-02 | Outpatient (CLI) | payer OTHER | LOC: LAB 15:10 → LAB SHORT 15:10 | DX: S91.331A Puncture wound without foreign body, right foot, initial encounter (principal) | CPT/HCPCS: 87070; 87077; 87147; 87186; 87205 ==

== ENCOUNTER 2025-02-09 10:04 | Emergency (ER) | payer OTHER ==
[~2025-02-09] VITALS: Ht 185.4 cm; Wt 90.7 kg
[2025-02-09 10:32] VITALS: BP 103/91
== END 2025-02-09 10:45 | disposition left against medical advice (07) ==
LOC: ER 10:04
DX: L08.9 Local infection of the skin and subcutaneous tissue, unspecified (principal); Z53.29 Procedure and treatment not carried out because of patient's decision for other reasons
CPT/HCPCS: 99281

== ENCOUNTER 2025-02-20 10:18 | Day surgery (SDC) | payer OTHER ==
[2025-02-20] MEDS ORDERED: DAPTOmycin 750 MG in NS 50 ML IV SCH (13:55)
[2025-02-20 15:37] VITALS: BP 131/84
[2025-02-20] MEDS ORDERED: Cyclobenzaprine5 MG PO (17:21)
[2025-02-20] MEDS ORDERED: ATOR10 PO (17:21)
[2025-02-20] MEDS ORDERED: FIASP 100100 UNIT/4 SC (17:23)
[2025-02-20] MEDS ORDERED: INSULIN GL100 UNIT/1 SC (17:23)
[2025-02-20] MEDS ORDERED: DOCUZEN 8.6-501 EACH PO (17:24)
[2025-02-20] MEDS ORDERED: IBUP400 PO (17:25)
[2025-02-21] MEDS ORDERED: CUBICIN RF500 M1 IV (18:05)
== END 2025-02-20 16:35 | disposition home or self-care (01) ==
LOC: ATC 10:18
DX: M86.9 Osteomyelitis, unspecified (principal); E11.9 Type 2 diabetes mellitus without complications; E78.2 Mixed hyperlipidemia; Z88.5 Allergy status to narcotic agent; Z88.8 Allergy status to other drugs, medicaments and biological substances; Z79.899 Other long term (current) drug therapy
CPT/HCPCS: 96365; C1751; J0878

== ENCOUNTER 2025-02-27 01:36 | Day surgery (SDC) | payer OTHER ==
[~2025-02-27 01:36] MED LIST changes: +ATOR10 PO; +CUBICIN RF500 M1 IV; +Cyclobenzaprine5 MG PO; +DOCUZEN 8.6-501 EACH PO; +FIASP 100100 UNIT/4 SC; +IBUP400 PO; +INSULIN GL100 UNIT/1 SC
[2025-02-27] MEDS ORDERED: DAPTOmycin 750 MG in NS 50 ML IV SCH (06:00)
[2025-02-27 16:32] VITALS: BP 117/74
[2025-02-27 17:20] LABS: BASOPHILS ABSOLUTE AUTO 0.03 K/mm3 (0.00-0.23); BASOPHILS PERCENT AUTO 0 % (0-2); EOSINOPHILS ABSOLUTE AUTO 0.66 K/mm3 (0.00-0.68); EOSINOPHILS PERCENT AUTO 9 % (0-6); Hematocrit 40.6 % (37.0-53.0); Hemoglobin 13.5 g/dL (13.5-17.5); IMMATURE GRAN ABSOLUTE AUTO 0.03 K/mm3 (0.00-0.10); IMMATURE GRAN PERCENT AUTO 0 % (0-1); LYMPHOCYTES ABSOLUTE AUTO 0.87 K/mm3 (0.84-5.20); LYMPHOCYTES PERCENT AUTO 12 % (21-46); MONOCYTES ABSOLUTE AUTO 0.68 K/mm3 (0.16-1.47); MONOCYTES PERCENT AUTO 10 % (4-13); Mean Corpuscular HGB Conc 33.3 g/dL (31.5-36.5); Mean Corpuscular Volume 91 fL (80-100); NEUTROPHILS ABSOLUTE AUTO 4.89 K/mm3 (1.96-9.15); NEUTROPHILS PERCENT AUTO 68 % (41-73); NRBC ABSOLUTE 0.00 K/mm3 (0.00-0.02); NRBC Auto 0.0 /100 WBC (0.0-0.2); Platelet Count 159 K/mm3 (150-400); RDW Coefficient Variation 12.5 % (11.7-14.2); RDW Standard Deviation 41.2 fL (35.1-46.3)
[2025-02-27 17:51] LABS: C-REACTIVE PROTEIN, EXT RANGE 11.5 mg/dL (0.000-0.300)
[2025-02-27 18:09] LABS: Alanine Aminotransfer (ALT/SGP 28.0 U/L (12-78); Albumin, Blood 3.2 g/dL (3.4-5.0); Albumin/Globulin Ratio 0.7 (0.8-1.8); Anion Gap 6.0 mmol/L (3-11); Aspartate Aminotrans (AST/SGOT 12.0 U/L (12-37); Bilirubin, Total 0.4 mg/dL (0.1-1.0); Blood Urea Nitrogen 19.0 mg/dL (8-24); CO2, Blood 26.0 mmol/L (21-32); Calcium, Blood 9.0 mg/dL (8.5-10.1); Chloride, Blood 106.0 mmol/L (98-108); Creatinine, Blood 0.85 mg/dL (0.60-1.20); Globulin, Blood 4.3 g/dL (2.2-4.0); Glucose, Blood 174.0 mg/dL (70-99); Potassium, Blood 4.0 mmol/L (3.5-5.5); Sodium, Blood 134.0 mmol/L (136-145); Total Protein, Blood 7.5 g/dL (6.4-8.2)
== END 2025-02-27 17:13 | disposition home or self-care (01) ==
LOC: ATC 01:36
PROVIDERS: Internal Medicine Infectious Disease
DX: E11.69 Type 2 diabetes mellitus with other specified complication (principal); M86.9 Osteomyelitis, unspecified; Z88.8 Allergy status to other drugs, medicaments and biological substances; Z88.5 Allergy status to narcotic agent; Z79.4 Long term (current) use of insulin; Z79.899 Other long term (current) drug therapy
CPT/HCPCS: 80053; 82550; 85025; 86140; 96365; J0878

== ENCOUNTER 2025-02-28 01:13 | Day surgery (SDC) | payer OTHER ==
[2025-02-28] MEDS ORDERED: DAPTOmycin 750 MG in NS 50 ML IV SCH (06:00)
== END 2025-02-28 16:40 | disposition home or self-care (01) ==
LOC: ATC 01:13
DX: M86.671 Other chronic osteomyelitis, right ankle and foot (principal); E11.69 Type 2 diabetes mellitus with other specified complication; L03.115 Cellulitis of right lower limb; B95.62 Methicillin resistant Staphylococcus aureus infection as the cause of diseases classified elsewhere; E78.2 Mixed hyperlipidemia; Z89.421 Acquired absence of other right toe(s); Z79.4 Long term (current) use of insulin; Z79.899 Other long term (current) drug therapy; Z88.5 Allergy status to narcotic agent; Z88.8 Allergy status to other drugs, medicaments and biological substances
CPT/HCPCS: 96365; J0878

== ENCOUNTER 2025-03-01 04:50 | Day surgery (SDC) | payer OTHER ==
[2025-03-01] MEDS ORDERED: DAPTOmycin 750 MG in NS 50 ML IV SCH (06:00)
[2025-03-01 16:36] VITALS: BP 130/73
== END 2025-03-01 16:50 | disposition home or self-care (01) ==
LOC: ATC 04:50
DX: E11.69 Type 2 diabetes mellitus with other specified complication (principal); M86.8X7 Other osteomyelitis, ankle and foot; E78.2 Mixed hyperlipidemia; Z79.4 Long term (current) use of insulin; Z79.899 Other long term (current) drug therapy; Z88.5 Allergy status to narcotic agent; Z88.8 Allergy status to other drugs, medicaments and biological substances
CPT/HCPCS: 96365; J0878

== ENCOUNTER 2025-03-02 02:27 | Day surgery (SDC) | payer OTHER ==
[2025-03-02] MEDS ORDERED: DAPTOmycin 750 MG in NS 50 ML IV SCH (06:00)
[2025-03-02 16:22] VITALS: BP 131/68
== END 2025-03-02 16:45 | disposition home or self-care (01) ==
LOC: ATC 02:27
DX: E11.69 Type 2 diabetes mellitus with other specified complication (principal); M86.8X7 Other osteomyelitis, ankle and foot; B95.62 Methicillin resistant Staphylococcus aureus infection as the cause of diseases classified elsewhere; E11.65 Type 2 diabetes mellitus with hyperglycemia; E78.2 Mixed hyperlipidemia; Z79.2 Long term (current) use of antibiotics; Z79.4 Long term (current) use of insulin; Z79.899 Other long term (current) drug therapy; Z88.5 Allergy status to narcotic agent; Z88.8 Allergy status to other drugs, medicaments and biological substances
CPT/HCPCS: 96365; J0878

== ENCOUNTER 2025-03-03 01:13 | Day surgery (SDC) | payer OTHER ==
[2025-03-03] MEDS ORDERED: DAPTOmycin 750 MG in NS 50 ML IV SCH (06:00)
[2025-03-03 16:18] VITALS: BP 117/69
== END 2025-03-03 16:45 | disposition home or self-care (01) ==
LOC: ATC 01:13
DX: M86.671 Other chronic osteomyelitis, right ankle and foot (principal); E11.69 Type 2 diabetes mellitus with other specified complication; E11.65 Type 2 diabetes mellitus with hyperglycemia; L03.115 Cellulitis of right lower limb; E78.2 Mixed hyperlipidemia; Z79.4 Long term (current) use of insulin; Z79.899 Other long term (current) drug therapy; Z88.5 Allergy status to narcotic agent; Z88.8 Allergy status to other drugs, medicaments and biological substances
CPT/HCPCS: 96365; J0878

== ENCOUNTER 2025-03-04 02:03 | Day surgery (SDC) | payer OTHER ==
[2025-03-04] MEDS ORDERED: DAPTOmycin 750 MG in NS 50 ML IV SCH (06:00)
[2025-03-04 16:07] VITALS: BP 130/75
== END 2025-03-04 16:34 | disposition home or self-care (01) ==
LOC: ATC 02:03
DX: E11.69 Type 2 diabetes mellitus with other specified complication (principal); M86.671 Other chronic osteomyelitis, right ankle and foot; E78.2 Mixed hyperlipidemia; Z88.5 Allergy status to narcotic agent; Z88.8 Allergy status to other drugs, medicaments and biological substances
CPT/HCPCS: 96365; J0878

== ENCOUNTER 2025-03-05 04:11 | Day surgery (SDC) | payer OTHER ==
[2025-03-05] MEDS ORDERED: DAPTOmycin 750 MG in NS 50 ML IV SCH (06:00)
[2025-03-05 16:15] VITALS: BP 118/73
== END 2025-03-05 16:30 | disposition home or self-care (01) ==
LOC: ATC 04:11
DX: M86.671 Other chronic osteomyelitis, right ankle and foot (principal); E11.69 Type 2 diabetes mellitus with other specified complication; E11.65 Type 2 diabetes mellitus with hyperglycemia; E78.2 Mixed hyperlipidemia; L03.115 Cellulitis of right lower limb; Z88.5 Allergy status to narcotic agent; Z88.8 Allergy status to other drugs, medicaments and biological substances
CPT/HCPCS: 96365; J0878

== ENCOUNTER 2025-03-06 00:30 | Day surgery (SDC) | payer OTHER ==
[2025-03-06] MEDS ORDERED: DAPTOmycin 750 MG in NS 50 ML IV SCH (06:00)
[2025-03-06 16:53] LABS: BASOPHILS ABSOLUTE AUTO 0.05 K/mm3 (0.00-0.23); BASOPHILS PERCENT AUTO 1 % (0-2); EOSINOPHILS ABSOLUTE AUTO 1.18 K/mm3 (0.00-0.68); EOSINOPHILS PERCENT AUTO 17 % (0-6); Hematocrit 37.1 % (37.0-53.0); Hemoglobin 12.3 g/dL (13.5-17.5); IMMATURE GRAN ABSOLUTE AUTO 0.06 K/mm3 (0.00-0.10); IMMATURE GRAN PERCENT AUTO 1 % (0-1); LYMPHOCYTES ABSOLUTE AUTO 0.77 K/mm3 (0.84-5.20); LYMPHOCYTES PERCENT AUTO 11 % (21-46); MONOCYTES ABSOLUTE AUTO 0.54 K/mm3 (0.16-1.47); MONOCYTES PERCENT AUTO 8 % (4-13); Mean Corpuscular HGB Conc 33.2 g/dL (31.5-36.5); Mean Corpuscular Volume 90 fL (80-100); NEUTROPHILS ABSOLUTE AUTO 4.26 K/mm3 (1.96-9.15); NEUTROPHILS PERCENT AUTO 62 % (41-73); NRBC ABSOLUTE 0.00 K/mm3 (0.00-0.02); NRBC Auto 0.0 /100 WBC (0.0-0.2); Platelet Count 210 K/mm3 (150-400); RDW Coefficient Variation 12.6 % (11.7-14.2); RDW Standard Deviation 41.4 fL (35.1-46.3)
[2025-03-06 17:13] LABS: C-REACTIVE PROTEIN, EXT RANGE 6.28 mg/dL (0.000-0.300)
[2025-03-06 17:26] LABS: Alanine Aminotransfer (ALT/SGP 30.0 U/L (12-78); Albumin, Blood 2.8 g/dL (3.4-5.0); Albumin/Globulin Ratio 0.7 (0.8-1.8); Anion Gap 11.0 mmol/L (3-11); Aspartate Aminotrans (AST/SGOT 15.0 U/L (12-37); Bilirubin, Total 0.3 mg/dL (0.1-1.0); Blood Urea Nitrogen 19.0 mg/dL (8-24); CO2, Blood 25.0 mmol/L (21-32); Calcium, Blood 9.1 mg/dL (8.5-10.1); Chloride, Blood 106.0 mmol/L (98-108); Creatinine, Blood 0.79 mg/dL (0.60-1.20); Globulin, Blood 4.0 g/dL (2.2-4.0); Glucose, Blood 193.0 mg/dL (70-99); Potassium, Blood 3.9 mmol/L (3.5-5.5); Sodium, Blood 138.0 mmol/L (136-145); Total Protein, Blood 6.8 g/dL (6.4-8.2)
--- NOTE | 2025-03-06 17:37 | NUR ---
LABS FAXED TO DR LUNA
== END 2025-03-06 16:47 | disposition home or self-care (01) ==
LOC: ATC 00:30
PROVIDERS: Internal Medicine Infectious Disease
DX: E11.69 Type 2 diabetes mellitus with other specified complication (principal); M86.671 Other chronic osteomyelitis, right ankle and foot; E78.2 Mixed hyperlipidemia; E11.65 Type 2 diabetes mellitus with hyperglycemia; Z89.421 Acquired absence of other right toe(s); Z88.5 Allergy status to narcotic agent; Z88.8 Allergy status to other drugs, medicaments and biological substances
CPT/HCPCS: 80053; 82550; 85025; 86140; 96365; J0878

== ENCOUNTER 2025-03-07 00:36 | Day surgery (SDC) | payer OTHER ==
[2025-03-07] MEDS ORDERED: DAPTOmycin 750 MG in NS 50 ML IV SCH (06:00)
[2025-03-07 16:06] VITALS: BP 124/72
== END 2025-03-07 16:28 | disposition home or self-care (01) ==
LOC: ATC 00:36
DX: E11.69 Type 2 diabetes mellitus with other specified complication (principal); M86.671 Other chronic osteomyelitis, right ankle and foot; E78.2 Mixed hyperlipidemia; E11.65 Type 2 diabetes mellitus with hyperglycemia; Z88.5 Allergy status to narcotic agent; Z88.8 Allergy status to other drugs, medicaments and biological substances; Z89.421 Acquired absence of other right toe(s)
CPT/HCPCS: 96365; J0878

== ENCOUNTER 2025-03-08 04:31 | Day surgery (SDC) | payer OTHER ==
[2025-03-08] MEDS ORDERED: DAPTOmycin 750 MG in NS 50 ML IV SCH (06:00)
[2025-03-08 15:35] VITALS: BP 120/71
== END 2025-03-08 16:01 | disposition home or self-care (01) ==
LOC: ATC 04:31
DX: E11.69 Type 2 diabetes mellitus with other specified complication (principal); M86.9 Osteomyelitis, unspecified; B95.62 Methicillin resistant Staphylococcus aureus infection as the cause of diseases classified elsewhere; E78.2 Mixed hyperlipidemia; Z79.4 Long term (current) use of insulin; Z79.899 Other long term (current) drug therapy; Z88.8 Allergy status to other drugs, medicaments and biological substances; Z88.5 Allergy status to narcotic agent
CPT/HCPCS: 96365; J0878

== ENCOUNTER 2025-03-09 03:20 | Day surgery (SDC) | payer OTHER ==
[2025-03-09] MEDS ORDERED: DAPTOmycin 750 MG in NS 50 ML IV SCH (06:00)
[2025-03-09 16:35] VITALS: BP 110/73
== END 2025-03-09 16:55 | disposition home or self-care (01) ==
LOC: ATC 03:20
DX: E11.69 Type 2 diabetes mellitus with other specified complication (principal); M86.9 Osteomyelitis, unspecified; B95.62 Methicillin resistant Staphylococcus aureus infection as the cause of diseases classified elsewhere; E78.2 Mixed hyperlipidemia; Z79.4 Long term (current) use of insulin; Z79.899 Other long term (current) drug therapy
CPT/HCPCS: 96365; J0878

== ENCOUNTER 2025-03-10 01:33 | Day surgery (SDC) | payer OTHER ==
[2025-03-10] MEDS ORDERED: DAPTOmycin 750 MG in NS 50 ML IV SCH (06:00)
[2025-03-10 16:45] VITALS: BP 123/70
== END 2025-03-10 17:17 | disposition home or self-care (01) ==
LOC: ATC 01:33
DX: M86.671 Other chronic osteomyelitis, right ankle and foot (principal); E11.69 Type 2 diabetes mellitus with other specified complication; E78.2 Mixed hyperlipidemia; Z88.5 Allergy status to narcotic agent; Z88.8 Allergy status to other drugs, medicaments and biological substances
CPT/HCPCS: 96365; J0878